=== PATIENT | male | born 1990 | race African-American/Black ===

== ENCOUNTER → 2016-10-28 | Outpatient (CLI) | payer OTHER ==
[~2016-10-28] MED LIST: GABA-113 PO; HYDR-4383 PO; IBUP-1450 PO; KETO10TA PO; METH4PAK PO; OXYC1TAB3 PO
--- NOTE | 2016-10-28 17:01 | DIAGNOSTIC IMAGING REPORT ---
MRI OF THE LUMBAR SPINE WITHOUT CONTRAST CLINICAL HISTORY: Disc herniation. Back pain radiating into left lower extremity. Lifting injury. COMPARISON STUDY: Lumbar spine radiographs July 30, 2016. TECHNIQUE: Utilizing a 1.5 Jeaneth magnet and dedicated coil, multiplanar, multiecho imaging of the lumbar spine was performed without IV contrast. FINDINGS: For purposes of numbering on this exam, the L5-S1 disc space is assigned to axial image 27 of 30. Alignment of the lumbar spine is anatomic. Vertebral body heights are maintained. There is no intracanalicular mass or fluid collection. Conus terminates at the mid L1 level. Paravertebral soft tissues are unremarkable. L1-2: The central canal and neural foramen are patent. L2-3: The central canal and neural foramen are patent. L3-4: The central canal and neural foramen are patent. L4-5: The central canal and neural foramen are patent. L5-S1: There is disc space narrowing with a disc bulge with a superimposed central/left paracentral disc protrusion. This results in moderate narrowing of the central canal and moderate to severe narrowing of the left lateral recess with mass effect upon the descending left S1 nerve root. There is mild narrowing of the left neural foramen as well as minimal narrowing of the right neural foramen. IMPRESSION: 1. Disc bulge with superimposed left paracentral disc protrusion at L5-S1 that results in moderate to severe narrowing of the left lateral recess and moderate narrowing of the central canal. Mass effect upon the descending left S1 nerve root. Mild bilateral neural foraminal narrowing at this level. 2. Otherwise, unremarkable MRI of the lumbar spine. Electronically signed by: Amari Maya M.D. 10/28/2016 5:00 PM Dictated Date/Time: 10/28/2016 4:56 PM
== END | disposition home or self-care (01) ==
LOC: C.MRI 15:54
PROVIDERS: ATTEND Orthopaedic Surgery Orthopaedic Surgery of the Spine
DX: M51.26 Other intervertebral disc displacement, lumbar region (principal); M51.27 Other intervertebral disc displacement, lumbosacral region; M48.06 Spinal stenosis, lumbar region; G54.8 Other nerve root and plexus disorders

== ENCOUNTER 2016-11-26 09:11 | Observation (INO) | payer OTHER ==
[~2016-11-26] VITALS: Ht 180.3 cm; Wt 96.0 kg
[~2016-11-26 09:11] MED LIST changes: -GABA-113 PO; -HYDR-4383 PO; -IBUP-1450 PO; -KETO10TA PO; -METH4PAK PO
[2016-11-26] MEDS ORDERED: MoRPHine SULFATE 10 MG/ML CARP/VIAL IV STA (09:30)
[2016-11-26] MEDS ORDERED: ONDANSETRON INJ 2 MG/ML 2 ML VIAL IV STA (09:30)
--- NOTE | 2016-11-26 09:33 | EMERGENCY ROOM VISIT NOTE ---
History First contact with patient: : Chief Complaint: BACK PAIN Stated Complaint: LOWER BACK AND LEFT HIP PAIN REF BY DR. MSOES History of Present Illness The patient is a 26 year old male who presents to the Emergency Room with complaints of low back pain. The patient has been having lower back pain for the last 4 months. The patient has had an MRI at the beginning of the month which showed disc protrusion L5-S1 and mass effect upon the descending left S1 nerve root. The patient has seen Dr. Moses and most recently on Tuesday. The patient was started on a Medrol Dosepak and Toradol. The patient states he is waiting for an injection to be scheduled. The patient states that he has had worsening pain in the low back and left hip. He rates his discomfort a 10/10. 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 The patient contacted Dr. Moses's office this morning and was referred to the emergency department. He denies any fevers. He denies any loss of bowel or bladder control, saddle anesthesia. He denies any abdominal pain, nausea or vomiting. Review of Systems A 10 system review of systems was completed with positives and pertinent negatives listed in the HPI. Past Medical/Surgical History Medical Problems: (1) Chr Ethmoidal Sinusitis (2) Chr Sphenoidal Sinusitis (3) Concussion W/O Coma Surgical Problems: (1) No history of previous surgery Social History Smoking Status: Never Smoker Alcohol Use: none Drug Use: none Marital Status: single Occupation Status: [employer] student Current/Historical Medications Scheduled Methylprednisolone (Medrol Dosepak), 0 PO UD Scheduled PRN Ketorolac (Toradol), 10 MG PO Q6 PRN for Pain Allergies Coded Allergies: No Known Allergies (Unverified , 07/27/16) Physical Exam Vital Signs Date Time Temp Pulse Resp B/P Pulse Ox O2 Delivery O2 Flow Rate FiO2 11/26/16 14:55 73 15 136/80 99 Room Air 11/26/16 13:48 62 16 160/116 99 Room Air 11/26/16 12:35 56 16 142/78 99 11/26/16 10:24 56 16 125/69 99 Room Air 11/26/16 09:13 36.5 73 18 143/89 100 Room Air Physical Exam VITALS: Vitals are noted on the nurse's note and reviewed by myself. Vital signs stable. GENERAL: This is a 26-year-old male, in no acute distress, nondiaphoretic, well- developed well-nourished. SKIN: The skin was without rashes, erythema, edema, or bruising. There is no tenting of the skin. Capillary reflex less than 2 seconds. HEAD: Normocephalic atraumatic. EARS: The external ears are normal in appearance EYES: Pupils equal round and reactive to light and accommodation. Conjunctivae without injection, sclerae without icterus. Extraocular movements intact. NOSE: Patent, turbinates without inflammation or discharge. MOUTH: Mucous membranes moist. Tonsils are not enlarged. Pharynx without erythema or exudate. Uvula midline. Airway patent. Tongue does not deviate. NECK: Supple without nuchal rigidity. No lymphadenopathy. No thyromegaly. Cervical spine is nontender. No JVD. HEART: Regular rate and rhythm without murmurs gallops or rubs. LUNGS: Clear to auscultation bilaterally without wheezes, rales or rhonchi. No retractions or accessory muscle use. ABDOMEN: Positive bowel sounds x 4. Soft, nontender, without masses or organomegaly. MUSCULOSKELETAL: No muscle atrophy, erythema, or edema noted. Full range of motion in all extremities. No tenderness to palpation. Strength 5/5 throughout. NEURO: Patient was alert and oriented to person place and time. Normal sensation to light and sharp touch. Deep tendon reflexes 1+ but equal in the lower extremity is bilaterally. No focal neurological deficits. Medical Decision & Procedures Laboratory Results 11/26/16 09:50 Red Blood Count 4.88, Mean Corpuscular Volume 87.5, Mean Corpuscular Hemoglobin 29.5, Mean Corpuscular Hemoglobin Concent 33.7, Mean Platelet Volume 10.5, Neutrophils (%) (Auto) 63.8, Lymphocytes (%) (Auto) 27.7, Monocytes (%) (Auto) 8.0, Eosinophils (%) (Auto) 0.2, Basophils (%) (Auto) 0.2, Neutrophils # (Auto) 5.20, Lymphocytes # (Auto) 2.26, Monocytes # (Auto) 0.65, Eosinophils # (Auto) 0.02, Basophils # (Auto) 0.02 11/26/16 09:50 Test 11/26/16 09:50 11/26/16 11:15 White Blood Count 8.16 K/uL (4.8-10.8) Red Blood Count 4.88 M/uL (4.7-6.1) Hemoglobin 14.4 g/dL (14.0-18.0) Hematocrit 42.7 % (42-52) Mean Corpuscular Volume 87.5 fL (80-100) Mean Corpuscular Hemoglobin 29.5 pg (25-34) Mean Corpuscular Hemoglobin Concent 33.7 g/dl (32-36) Platelet Count 264 K/uL (130-400) Mean Platelet Volume 10.5 fL (7.4-10.4) Neutrophils (%) (Auto) 63.8 % Lymphocytes (%) (Auto) 27.7 % Monocytes (%) (Auto) 8.0 % Eosinophils (%) (Auto) 0.2 % Basophils (%) (Auto) 0.2 % Neutrophils # (Auto) 5.20 K/uL (1.4-6.5) Lymphocytes # (Auto) 2.26 K/uL (1.2-3.4) Monocytes # (Auto) 0.65 K/uL (0.11-0.59) Eosinophils # (Auto) 0.02 K/uL (0-0.5) Basophils # (Auto) 0.02 K/uL (0-0.2) RDW Standard Deviation 40.0 fL (36.4-46.3) RDW Coefficient of Variation 12.5 % (11.5-14.5) Immature Granulocyte % (Auto) 0.1 % Immature Granulocyte # (Auto) 0.01 K/uL (0.00-0.02) Urine Renal Epithelial Cells 0-5 /lpf (0-5) Anion Gap 7.0 mmol/L (3-11) Est Creatinine Clear Calc Drug Dose 103.6 ml/min Estimated GFR () 88.5 Estimated GFR (Non- 76.4 BUN/Creatinine Ratio 14.2 (10-20) Calcium Level 9.0 mg/dl (8.5-10.1) Total Bilirubin 0.4 mg/dl (0.2-1) Aspartate Amino Transf (AST/SGOT) 13 U/L (15-37) Alanine Aminotransferase (ALT/SGPT) 20 U/L (12-78) Alkaline Phosphatase 74 U/L (45-117) Total Protein 7.8 gm/dl (6.4-8.2) Albumin 4.0 gm/dl (3.4-5.0) Globulin 3.8 gm/dl (2.5-4.0) Albumin/Globulin Ratio 1.1 (0.9-2) Urine Color YELLOW Urine Appearance CLEAR (CLEAR) Urine pH 5.5 (4.5-7.5) Urine Specific [place] 1.027 (1.000-1.030) Urine Protein NEG (NEG) Urine Glucose (UA) NEG (NEG) Urine Ketones NEG (NEG) Urine Occult Blood NEG (NEG) Urine Nitrite NEG (NEG) Urine Bilirubin NEG (NEG) Urine Urobilinogen NEG (NEG) Urine Leukocyte Esterase SMALL (NEG) Urine WBC (Auto) >30 /hpf (0-5) Urine RBC (Auto) 0-4 /hpf (0-4) Urine Hyaline Casts (Auto) 1-5 /lpf (0-5) Urine Epithelial Cells (Auto) 20-30 /lpf (0-5) Urine Bacteria (Auto) NEG (NEG) Medications Administered Medications (Trade) Dose Ordered Sig/Lyn Route Start Time Stop Time Status Last Admin Dose Admin Ondansetron HCl (Zofran Inj) 4 mg NOW STAT IV 11/26/16 09:30 11/26/16 09:31 DC 11/26/16 09:50 4 MG Morphine Sulfate (MoRPHine SULFATE INJ) 2 mg STK-MED ONCE .ROUTE 11/26/16 09:47 11/26/16 09:48 DC 11/26/16 09:51 2 MG Morphine Sulfate (MoRPHine SULFATE INJ) 4 mg STK-MED ONCE .ROUTE 11/26/16 09:47 11/26/16 09:48 DC 11/26/16 09:51 4 MG Morphine Sulfate (MoRPHine SULFATE INJ) 4 mg NOW STAT IV 11/26/16 10:36 11/26/16 10:37 DC 11/26/16 10:56 4 MG Ketorolac Tromethamine (Toradol Inj) 30 mg NOW STAT IV 11/26/16 11:33 11/26/16 11:34 DC 11/26/16 11:39 30 MG Hydromorphone HCl (Dilaudid Inj) 1 mg NOW STAT IV 11/26/16 12:07 11/26/16 12:08 DC 11/26/16 12:15 1 MG Lorazepam (Ativan Inj) 1 mg NOW STAT IV 11/26/16 12:57 11/26/16 12:58 DC 11/26/16 13:12 1 MG ED Course The patient was seen and examined. Previous visits were reviewed. The patient does not have a fever or leukocytosis. He does not have any significant electrolyte abnormality. Urine suggests contamination. The patient does not have any dysuria, urgency, frequency, penile discharge, penile rashes to suggest a true infection. Urine culture is pending. The patient was initially given 6 mg IV morphine. He complained of continued pain and was given 4 mg IV morphine. I discussed the case with Dr. Moses who recommended obtaining a lumbar spine MRI given the acute change in his symptoms. The MRI was ordered but the patient was unable to tolerate the MRI and could not lay flat. He was given 30 mg IV Toradol and 1 mg IV Dilaudid. He was sent over to MRI again and was again unable to tolerate laying flat for the MRI. At this time, I discussed the possibility of sending him home, trying Ativan and the MRI again for admitting him to the hospital for pain control. The patient stated he would like to try to get the MRI done. He was then given 1 mg IV Ativan. He was sent to MRI and again could not tolerate laying flat for the examination. At this time, I discussed the case with Dr. Moses. He will admit the patient to the hospital for intractable pain. The patient is agreeable with this plan. I also spoke with the patient's mother and gave her an update. The case was discussed with Dr. Bo who agrees with the assessment and treatment plan. Medical Decision DIFFERENTIAL DIAGNOSIS: Lumbar strain, degenerative disc disease, spondylolisthesis, herniated disc, spinal stenosis, osteoporosis, fracture, cauda equina syndrome, neoplasm, infection, inflammatory arthritis, among others. Impression Primary Impression: Herniated disc Additional Impression: Intractable back pain Departure Information Referrals RV. Dave MD (PCP) Patient Instructions My [facility] Problem Qualifiers
[2016-11-26] MEDS ORDERED: METH4PAK PO (09:35)
[2016-11-26] MEDS ORDERED: KETO10TA PO (09:35)
[2016-11-26] MEDS ORDERED: MoRPHine SULFATE 2 MG/ML CARP ONE (09:47)
[2016-11-26] MEDS ORDERED: MoRPHine SULFATE 4 MG/ML 1 ML CARP\\VIAL ONE (09:47)
[2016-11-26 10:09] LABS: BASO % 0.2 %; BASO ABS # 0.02 K/uL (0-0.2); COMPLETE YES; EOS % 0.2 %; HEMATOCRIT 42.7 % (42-52); IG% 0.1 %; LYMPH % 27.7 %; LYMPH ABS # 2.26 K/uL (1.2-3.4); MEAN CELL VOLUME 87.5 fL (80-100); MEAN CORPUSCULAR HEMOGLOBIN 29.5 pg (25-34); MEAN CORPUSCULAR HGB CONC 33.7 g/dl (32-36); MEAN PLATELET VOLUME 10.5 fL (7.4-10.4); NEUT % 63.8 %; PLATELET COUNT 264 K/uL (130-400); RED BLOOD COUNT 4.88 M/uL (4.7-6.1); WHITE BLOOD COUNT 8.16 K/uL (4.8-10.8)
[2016-11-26 10:13] LABS: URINE APPEARANCE CLEAR (CLEAR); URINE BILIRUBIN NEG (NEG); URINE COLOR YELLOW; URINE EPITHELIAL CELL AUTO >30 /lpf (0-5); URINE NITRITE NEG (NEG); URINE PH 5.5 (4.5-7.5); URINE SPECIFIC GRAVITY 1.031 (1.000-1.030); UROBILINOGEN NEG (NEG); ZZUR CULT IF INDIC CLEAN CATCH YES
[2016-11-26 10:14] LABS: MANUAL MICROSCOPIC REQUIRED? NO; REVIEW REQ? YES
[2016-11-26 10:20] LABS: BUN/CREATININE RATIO 14.2 (10-20); CREATININE 1.3 mg/dl (0.60-1.40); POTASSIUM 3.6 mmol/L (3.5-5.1)
[2016-11-26 10:23] LABS: ALB/GLOB RATIO 1.1 (0.9-2)
[2016-11-26] MEDS ORDERED: MoRPHine SULFATE 4 MG/ML 1 ML CARP\\VIAL IV STA (10:36)
[2016-11-26] MEDS ORDERED: KETOROLAC TROMETHAMINE 30 MG/ML VIAL IV STA (11:33)
[2016-11-26 11:42] LABS: URINE APPEARANCE CLEAR (CLEAR); URINE BILIRUBIN NEG (NEG); URINE COLOR YELLOW; URINE EPITHELIAL CELL AUTO 20-30 /lpf (0-5); URINE NITRITE NEG (NEG); URINE PH 5.5 (4.5-7.5); URINE SPECIFIC GRAVITY 1.027 (1.000-1.030); UROBILINOGEN NEG (NEG); ZZUR CULT IF INDIC CLEAN CATCH YES
[2016-11-26 11:45] LABS: MANUAL MICROSCOPIC REQUIRED? NO; REVIEW REQ? NO
[2016-11-26] MEDS ORDERED: HYDROmorphone INJ 1 MG/ML SYR IV STA (12:07)
[2016-11-26] MEDS ORDERED: LORAZEPAM 2 MG/ML 1 ML VIAL IV STA (12:57)
[2016-11-26] MEDS ORDERED: OXYCODONE/ACETAMINOPHEN 5-325 TAB PO PRN (15:30)
[2016-11-26] MEDS ORDERED: ONDANSETRON INJ 2 MG/ML 2 ML VIAL IV PRN (15:30)
[2016-11-26] MEDS ORDERED: PROMETHAZINE HCL INJ 12.5 MG in SODIUM CHLORIDE 0.9% 50ML 50 ML IV PRN (15:30)
[2016-11-26] MEDS ORDERED: ACETAMINOPHEN 325 MG TAB PO PRN (15:30)
[2016-11-26] MEDS ORDERED: IV FLUIDS COMPLETED PRN (16:15)
[2016-11-26 17:00] VITALS: BP 138/86; PULSE 67; TEMP 36.7; O2SAT 98; Ht 180.3 cm; Wt 96.0 kg
[2016-11-26] MEDS: HYDROCODONE/ACETAMOPHEN 5/325MG TAB PO PRN ×2 (17:01→21:10)
--- NOTE | 2016-11-26 17:57 | HISTORY & PHYSICAL EXAMINATION ---
DATE OF ADMISSION: 11/26/2016 ADMISSION HISTORY AND PHYSICAL CHIEF COMPLAINT: Back and left lower extremity difficulty. PRIMARY CARE PHYSICIAN: Dr. Machado. HISTORY OF PRESENT ILLNESS: Louis is a delightful gentleman. 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 I have known him for about a month, treating him conservatively with a disk protrusion of the spine. He has waxed and waned over the course of weeks, sometimes better, sometimes worse try to do some exercises and strength training over the last few days. No real trauma, but really had a precipitation of significant pain, came back to see his mother this morning around 7:00 a.m. They went right to the ER after they called our office for evaluation and treatment. His pain was so severe and he was not able to lie in the MRI machine. Fortunately, no bowel and bladder loss, no abdominal discomfort. No nausea, vomiting. No fevers, sweats or chills. PAST MEDICAL AND SURGICAL HISTORY: Sinusitis and prior concussion, no prior surgeries. SOCIAL HISTORY: Nonsmoker, nonalcohol user. He is single, student at [employer]. ALLERGIES: None known. REVIEW OF SYSTEMS: a 12-system review taken here today only positive for musculoskeletal chief complaint. OBJECTIVE: VITAL SIGNS: 142/78 blood pressure, respiration rate 16, pulse 56. HEENT: Pupils react to light and accommodation. Ear, nose and throat clear. HEART: Normal S1, S2, no S3. LUNGS: Clear to auscultation. No rales, rhonchi or wheezing. ABDOMEN: Soft, nontender. EXTREMITIES: Moves all 4 extremities. No weakness, no reflex changes. Profound straight leg raising on the left with numbness and tingling with straight leg raising. ASSESSMENT:. Intractable pain and disk herniation from the past. The patient really cannot be mobilized, cannot get in a scanner. DISPOSITION: Includes admission to hospital, place him on some IV steroids, IV Toradol, narcotics mild, hopefully get this turned around, he may need surgery, hopefully we can avoid surgical intervention. NAHOMI
[2016-11-26] MEDS: KETOROLAC TROMETHAMINE 30 MG/ML VIAL IV. SCH (18:40)
[2016-11-26] MEDS: DEXAMETHASONE INJ 6 MG in SYRINGE 0 ML IV SCH (19:03)
[2016-11-26] MEDS: DOCUSATE SODIUM 100 MG CAP PO SCH (21:09)
[2016-11-26] MEDS ORDERED: DEXAMETHASONE INJ 8 MG in SYRINGE 0 ML IV SCH (22:00)
[2016-11-26] MEDS: LORAZEPAM 1 MG TAB PO PRN (22:32)
[2016-11-26 23:25] VITALS: BP 130/84; PULSE 61; TEMP 36.8; O2SAT 98
[2016-11-27] MEDS: DIAZEPAM 5MG TAB PO PRN ×2 (00:01→10:14)
[2016-11-27] MEDS: KETOROLAC TROMETHAMINE 30 MG/ML VIAL IV. SCH ×5 (00:01→23:56)
[2016-11-27] MEDS: DEXAMETHASONE INJ 6 MG in SYRINGE 0 ML IV SCH ×5 (00:08→23:55)
[2016-11-27] MEDS: HYDROCODONE/ACETAMOPHEN 5/325MG TAB PO PRN ×3 (05:23→18:21)
[2016-11-27 07:10] VITALS: BP 143/96; PULSE 61; TEMP 36.9; O2SAT 97
[2016-11-27] MEDS: LORAZEPAM 1 MG TAB PO PRN ×2 (07:11→18:21)
[2016-11-27] MEDS: DOCUSATE SODIUM 100 MG CAP PO SCH ×2 (08:36→20:49)
--- NOTE | 2016-11-27 10:07 | PROGRESS NOTE ---
DATE: 11/26/2016 ADDENDUM TO VINNIE NOTE ASSESSMENT: Disc herniation L5-S1, left. PLAN: Includes the medication that has already been ordered for the patient, which includes Dilaudid for pain, Decadron, Toradol. I have added Neurontin tablets 300 mg t.i.d. this morning. We have also put a consultation in for pain management. I believe an injection L5-S1 on the left will help him with the acuity of pain and then hopefully successfully get an MRI scan of the spine.
[2016-11-27] MEDS ORDERED: HYDROmorphone INJ 1 MG/ML SYR ONE (10:19)
--- NOTE | 2016-11-27 10:50 | PROGRESS NOTE ---
DATE: 11/27/2016 SUBJECTIVE: Pain is about the same as it was last evening may be better. He has been up to the bathroom. He can ambulate minimally, he is stooped over. He is in significant pain when he moves his left leg. He is comfortable in a flexed up position. OBJECTIVE: Vital signs stable, alert, oriented. He is a little depressed because of his current situation, but that is only temporary. Rest of his vital signs stable. IMAGING: He has a large disk herniation from a prior MRI scan of his lumbar spine. Unfortunately, it is too painful. We cannot get new imaging on him. He cannot lie supine. PLAN: Includes continued medical treatment. Hopefully, get the inflammatory response under control and it would be appropriate to get a new MRI scan of his lumbar spine. I would not be in favor of surgery without new information. I know he has a large herniation L5-S1, be appropriate to know the extent of the worsening.
[2016-11-27] MEDS: GABAPENTIN 300 MG CAP PO SCH ×2 (15:24→20:49)
[2016-11-27 15:30] VITALS: O2SAT 97
[2016-11-27 15:49] VITALS: BP 131/83; PULSE 77; TEMP 36.5; O2SAT 99
[2016-11-27] MEDS: HYDROmorphone INJ 1 MG/ML SYR IV PRN (20:48)
[2016-11-27 23:16] VITALS: BP 138/92; PULSE 66; TEMP 36.5; O2SAT 98
[2016-11-28] MEDS: HYDROCODONE/ACETAMOPHEN 5/325MG TAB PO PRN ×5 (00:02→22:38)
[2016-11-28] MEDS: HYDROmorphone INJ 1 MG/ML SYR IV PRN ×3 (02:37→15:54)
[2016-11-28] MEDS: DEXAMETHASONE INJ 6 MG in SYRINGE 0 ML IV SCH ×4 (06:01→23:06)
[2016-11-28] MEDS: KETOROLAC TROMETHAMINE 30 MG/ML VIAL IV. SCH ×4 (06:01→23:07)
[2016-11-28 07:17] VITALS: BP 137/82; PULSE 56; TEMP 36.6; O2SAT 96
[2016-11-28] MEDS: GABAPENTIN 300 MG CAP PO SCH ×3 (08:59→21:11)
[2016-11-28] MEDS: DOCUSATE SODIUM 100 MG CAP PO SCH ×2 (08:59→21:11)
--- NOTE | 2016-11-28 13:13 | PROGRESS NOTE ---
DATE: 11/28/2016 SUBJECTIVE: Mildly better today than he was yesterday not significantly so. No fevers, sweats, chills, or bowel and bladder issues. OBJECTIVE: He moves all 4 extremities. No gross neurological deficit. No bowel and bladder issues. IMAGING DATA: We tried desperately to get an MRI scan yesterday which was the 27 of November. We tried 3 times to get Louis down and he could not tolerate becoming supine. Imaging from an old MRI scan demonstrates a disk herniation L5-S1, on his affected side, which is consistent with his pain and pathology. DISPOSITION: At this point in time, he does not seem to be making it too successfully and more than likely will need the surgical intervention. Prior surgery, I would really like to get a new MRI scan of the lumbar spine, so we are not surprised of surgical intervention. I doubt if any type of fusion will be required, but ____ get a handle on how large the disk is plus the migration or movement thereof. In summary, the game plan is to try to get Louis down for an MRI scan tomorrow. He may need a true sedation with anesthesia that will have to be arranged. If we get that performed tomorrow then he may require surgical intervention later in the week. There is an outside chance that he may get better on his own. Will follow him very closely as we have.
[2016-11-28 15:20] VITALS: BP 145/84; PULSE 60; TEMP 36.8; O2SAT 98
[2016-11-28 23:03] VITALS: BP 138/86; PULSE 63; TEMP 36.7; O2SAT 99
[2016-11-29] VITALS (9 sets, daily range): BP systolic 115–134; BP diastolic 66–82; PULSE 45–82; TEMP 36.3–36.8; O2SAT 92–98
[2016-11-29] MEDS: DIAZEPAM 5MG TAB PO PRN (00:16)
[2016-11-29] MEDS: HYDROmorphone INJ 1 MG/ML SYR IV PRN ×2 (02:10→12:31)
[2016-11-29] MEDS: HYDROCODONE/ACETAMOPHEN 5/325MG TAB PO PRN (05:54)
[2016-11-29] MEDS: KETOROLAC TROMETHAMINE 30 MG/ML VIAL IV. SCH ×4 (05:54→23:41)
[2016-11-29] MEDS: DEXAMETHASONE INJ 6 MG in SYRINGE 0 ML IV SCH ×4 (05:55→23:42)
[2016-11-29] MEDS: GABAPENTIN 300 MG CAP PO SCH ×3 (09:45→20:18)
[2016-11-29] MEDS: DOCUSATE SODIUM 100 MG CAP PO SCH ×2 (09:45→20:18)
[2016-11-29] MEDS: LORAZEPAM 1 MG TAB PO PRN (09:48)
--- NOTE | 2016-11-29 13:28 | CONSULTATION REPORT ---
DATE OF CONSULTATION: 11/29/2016 Plan of care discussed with Dr. Melita Lin. CHIEF COMPLAINT: Left-sided low back and gluteal pain as well as left foot paresthesias. HISTORY OF PRESENT ILLNESS: Mr. Johns is a 26-year-old male who was admitted due to intractable pain in the left lumbosacral region extending into the gluteal area with paresthesias affecting the left foot. The patient reported onset of his pain approximately in July while performing a weightlifting, squatting maneuver. He was followed by Dr. Elder in the outpatient setting with MRI scanning, which showed a lumbar disc protrusion at L5-S1 with mass effect upon the descending left S1 nerve root at that time. Conservative management was recommended and he was reporting some symptomatic improvement. The patient reported acute onset of his current symptomatic complaints over the past few days without known injury. He denied offending activities immediately leading to the onset of his current pain complaint. MRI has been attempted during this inpatient stay for reevaluation, but unsuccessful due to his inability to tolerate supine activities. MRI scan with sedation is tentatively planned for later today. The patient indicates that his pain is minimal at this time predominantly in the left gluteal area. He rates his current pain at a 4/10 ranging between 3-7/10. The patient denies a true radicular pain into the lower extremity but does report some paresthesias affecting the foot in a nondermatomal pattern. He denies any weaknesses, footdrop or falling. The patient denies right lower extremity radicular pain at this time. He denies any bowel or bladder incontinence. He denies any saddle anesthesias. The patient wishes to avoid surgical intervention and reports that a prior epidural was planned but not completed. 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 PAST MEDICAL HISTORY: 1. Chronic ethmoidal sinusitis. 2. Chronic sphenoid sinusitis. 3. History of concussion. PAST SURGICAL HISTORY: Unremarkable. SOCIAL HISTORY: The patient is currently a student at [employer] participating in football. He denies alcohol, tobacco or illicit drug use. The patient is single without children. ALLERGIES: No known drug allergies. CURRENT MEDICATIONS: Reviewed extensively in EMR -- refer for current list. REVIEW OF SYSTEMS: The patient denies complaints related to cardiac, pulmonary, GI, , endocrine, neurologic, hepatic, renal, ENT, dermatologic, musculoskeletal as described above in the HPI. PHYSICAL EXAMINATION: VITAL SIGNS: Temperature 36.8 degrees Celsius, pulse 50, respirations 16, BP 116/66, pulse oximetry 98 on room air. GENERAL: Mr. Johns is lying quietly upon entering the room in no obvious acute distress. Speech and thought process are appropriate. Mood and affect are appropriate. Cognition is intact. ABDOMEN: Soft and nondistended. BACK AND SPINE: Normal to slight loss of lumbar lordosis. The patient is nontender over the midline. No focal facet or SI joint tenderness. He is moderately tender over the left quadratus lumborum along the iliac crest as well as the gluteal musculature. There are some scattered spasm appreciated on the left. He is nontender without spasm most noted on the right. Range of motion is without limitation. LOWER EXTREMITIES: SLR is positive on the left reproducing low back and gluteal pain on the left. Negative SLR on the right. Strength testing was 5/5 and equal with dorsiflexion, plantar flexion, knee flexion, knee flexion/extension, and hip flexion bilaterally. Sensation was intact without deficits distally to sharp and dull. No evidence of edema, erythema or skin breakdown. Distal pulses are 2+. Babinski downgoing bilaterally. NEUROLOGIC: Cranial nerves grossly intact. Ambulatory function was not witnessed. IMAGING: MRI of the lumbar spine dated 10/28/2016 was reviewed which revealed a disk bulge at L5-S1 with a superimposed left paracentral protrusion resulting in moderate to severe narrowing of the left lateral recess and moderate narrowing of the central canal. There is mass effect upon the descending left S1 nerve root. There is mild bilateral neural foraminal narrowing at this level. MRI was otherwise unremarkable. ASSESSMENT: 1. Lumbar radiculopathy with MRI evidence of a left paracentral disc protrusion at L5-S1 causing mass effect upon the descending left S1 nerve root dated 10/28/2016. TREATMENT AND RECOMMENDATIONS: 1. Would recommend maintaining his current medications as prescribed without change. 2. We did briefly discuss pursuing epidural steroid injection, but would hold pending results of his upcoming MRI scheduled for later today. Will tentatively consider pursuing ANTONETTE on 11/30/2016 pending review of MRI results. 3. Will continue to follow during hospitalization. Thank you for the consultation of Mr. Johns. NAHOMI
[2016-11-29] MEDS ORDERED: DexMEDEtomidine HCL IV 100 MCG/ML VIAL IV ONE (14:20)
[2016-11-29] MEDS ORDERED: MIDAZOLAM HCL 1 MG/ML 2ML VIAL ONE (14:23)
[2016-11-29] MEDS ORDERED: FENTANYL CITRATE INJ 50 MCG/1 ML 2 ML VIAL ONE ×2 (14:23→16:28)
[2016-11-29] MEDS ORDERED: OXYMETAZOLINE HCL 0.05% NA SPR 15 ML BTL ONE (14:51)
--- NOTE | 2016-11-29 15:02 | PROGRESS NOTE ---
DATE: 11/29/2016 SUBJECTIVE: Moderate complaints of pain. Still at bed rest. He is able to use the bathroom. No fevers, sweats, chills. No bowel or bladder issues. Hemoglobin 14.4. White cell count 8.6. Alert, oriented. ASSESSMENT: Disk herniation, lumbar spine. DISPOSITION: Includes an MRI scan later on this evening under anesthesia. Tentatively will get the patient home at bed rest tomorrow as far as discharge is concerned, I am doubtful have any urgent surgery certainly is not mandatory as he has no gross neurological deficit. I would like to get him home and then appropriately schedule him on the operative schedule, if he needs surgery in the not too distant future.
[2016-11-29] MEDS ORDERED: EpHEDrine SULFATE INJ 50 MG/ML AMP IV PRN (16:45)
[2016-11-29] MEDS ORDERED: ATROPINE SULFATE 0.1 MG/ML 5ML SYR IV PRN (16:45)
--- NOTE | 2016-11-29 17:25 | DIAGNOSTIC IMAGING REPORT ---
MRI OF THE LUMBAR SPINE WITHOUT CONTRAST CLINICAL HISTORY: Low back pain radiating into left upper extremity. COMPARISON STUDY: MRI of the lumbar spine October 28, 2016. TECHNIQUE: This study was performed with anesthesia for sedation. Utilizing a 1.5 Jeaneth magnet and dedicated coil, multiplanar, multiecho imaging of the lumbar spine was performed without IV contrast. FINDINGS: For purposes of numbering on this exam, the L5-S1 disc space is assigned to axial image 27 of 30. This exam is mildly compromised by motion artifact but is diagnostic. Vertebral body heights are maintained. There is no intracanalicular mass or fluid collection. The conus terminates at the lower L1 level. Paravertebral soft tissues are unremarkable. L1-2: The central canal and neural foramen are patent. L2-3: The central canal and neural foramen are patent. L3-4: The central canal and neural foramen are patent. L4-5: The central canal and neural foramen are patent. L5-S1: There is disc space narrowing with disc bulge and a superimposed central/left paracentral disc protrusion which is similar to MRI of October 28, 2016. This results in moderate to severe narrowing of the left lateral recess and moderate narrowing of the central canal. There is mild bilateral neural foraminal stenosis at this level. IMPRESSION: 1. No significant change in the left paracentral disc protrusion at L5-S1 since MRI of October 28, 2016. This disc herniation results in moderate to severe narrowing of the left lateral recess and moderate narrowing of the central canal. 2. Otherwise, unremarkable MRI of the lumbar spine. Electronically signed by: Amari Maya M.D. 11/29/2016 5:24 PM Dictated Date/Time: 11/29/2016 5:19 PM
--- NOTE | 2016-11-29 18:58 | Anesthesiology Progress Note ---
Anesthesia Post Op Note Date & Time Nov 29, 2016 at 18:58 Vital Signs Pain Intensity: 0.0 Vital Signs Past 12 Hours Date Time Temp Pulse Resp B/P Pulse Ox O2 Delivery O2 Flow Rate FiO2 11/29/16 18:15 36.5 45 16 134/81 96 Room Air 11/29/16 17:50 Room Air 11/29/16 17:49 36.6 48 16 92 Room Air 11/29/16 17:35 36.6 48 16 133/98 100 Room Air 11/29/16 17:25 50 16 140/94 100 Room Air 11/29/16 17:15 36.4 52 16 158/100 100 Mask 10 11/29/16 16:33 Room Air 11/29/16 15:40 36.5 60 18 133/79 97 Room Air 11/29/16 11:52 36.8 59 17 128/82 98 Room Air 11/29/16 09:58 98 Room Air 11/29/16 07:59 Room Air 11/29/16 07:57 36.8 50 16 116/66 98 Room Air Notes Mental Status: alert / awake / arousable, participated in evaluation Pt Amnestic to Procedure: Yes Nausea / Vomiting: adequately controlled Pain: adequately controlled Airway Patency, RR, SpO2: stable & adequate BP & HR: stable & adequate Hydration State: stable & adequate Anesthetic Complications: no major complications apparent
[2016-11-30] MEDS: HYDROCODONE/ACETAMOPHEN 5/325MG TAB PO PRN ×2 (05:09→09:31)
[2016-11-30] MEDS: KETOROLAC TROMETHAMINE 30 MG/ML VIAL IV. SCH ×2 (05:48→11:32)
[2016-11-30] MEDS: DEXAMETHASONE INJ 6 MG in SYRINGE 0 ML IV SCH ×2 (05:49→11:38)
[2016-11-30 07:06] VITALS: BP 137/83; PULSE 49; TEMP 36.8; O2SAT 97
[2016-11-30] MEDS: DOCUSATE SODIUM 100 MG CAP PO SCH (08:34)
[2016-11-30] MEDS: GABAPENTIN 300 MG CAP PO SCH (08:34)
[2016-11-30] MEDS ORDERED: METH4PAK PO (09:51)
[2016-11-30] MEDS ORDERED: GABA-113 PO (09:51)
[2016-11-30] MEDS ORDERED: HYDR-4383 PO (09:51)
--- NOTE | 2016-11-30 09:53 | Discharge Instructions ---
Discharge Instructions Date of Service Nov 30, 2016. Admission Reason for Admission: Left Lumbar Radiculopathy Discharge Discharge Diagnosis / Problem: SAME ABOVE Discharge Goals Goal(s): Decrease discomfort, Improve function Activity Recommendations Activity Limitations: as noted below Lifting Limitations: until after follow-up appointment Exercise/Sports Limitations: until after follow-up appointment May Resume Sexual Activity: after follow-up appointment Shower/Bathe: no limitations . Instructions / Follow-Up Instructions / Follow-Up MEDICATIONS: Please take your prescriptions as instructed at your pre-op appointment. SPECIAL CARE: The following information is intended to answer some of the common questions and concerns regarding your surgery. Each patient is an individual and receives individual counselling throughout the course of treatment, from diagnosis to surgery all the way through recovery. What follows is not an exhaustive list, but should be a useful guide to some of the common questions and concerns patients have regarding their surgeries. These are not provided to keep you from calling us; rather, they give you something accurate and concrete to reference as you recover from your procedure. If you need us, we are available to you. As always, if you are not sure about something, call us at [phone]. MEDICAL EMERGENCIES: For these conditions, call 911 or go to your local hospital-based Emergency Department - not [facility] or equivalent. * Paralysis * Severe chest pain or difficulty breathing * Swelling or redness of either leg Spine procedures can be rather complex and though complications are rare, they do occur. In such cases, effective advice regarding emergency situations cannot always be addressed over the telephone. You may be referred to the emergency department for more effective management of your problem. Activity Limitations: It is important to give your body time to heal, so please limit your activities : * In general, don't do anything that moves your spine too much. You should avoid contact sports, twisting or heavy lifting while you recover. * 5-10 pounds is all you should attempt to lift. * You should not plan on driving for approximately 3 weeks and you should avoid traveling more than 30-45 minutes at a time. Longer trips should be broken down with walking breaks spaced appropriately. * Physical therapy is not usually required. * Walking and good posture practices will help you recover and regain your function. * Avoid straining or sudden changes in position. * In general, the goal is to take it easy and recover. Don't cause any new problems. Just relax. Showers: * Do not take a bath, use a Jacuzzi or hot tub or otherwise submerge your incision. * It is usually safe to take a shower 4-5 days after your surgery. * Your incision does not require any special creams or ointments. * Simply clean it with soap and water, dry and re-dress with a clean bandage afterwards. Incision: * Keep incision clean, dry and protected until your first follow-up appointment. * Some amount of drainage and redness is normal. Any drainage should be fairly clear and not have a foul odor. * If you feel anything is wrong or you have excessive drainage, please call us. * Your stitches and cynthia will be removed 10-14 days after your surgery. At the time of your first post-op visit. * Neck surgeries are typically closed with a suture underneath the skin. The steri-strips over the incision should be maintained until we see you in the office. Bracing: * You may be provided with a back or neck brace to encourage good posture and prevent injury. It will remind you not to do too much as you heal and will alert others to the fact that you have had a surgery. * Back braces may be removed for showers and when you are resting at home. They must be worn when you are walking around for any period of time or for travel. * For neck surgery, you will likely be provided with two cervical collars. The soft collar ([place] or foam rubber) is worn most commonly throughout the day and while sleeping. The plastic collar (provided at the hospital) is for showering/bathing. * Except while eating, collars should remain in place. More specifically, bracing is provided for a purpose and should be worn. * Please obtain your brace or collars prior to your operation and bring them to the hospital with you on the day of surgery. * You should also bring your collars to your post-op appointment with Dr. Elder. You should always take good care of your body and practice healthy habits, especially following surgery. You should: * Follow your doctor's treatment plan * Sit and stand properly with good posture (ears over shoulders, shoulders over hips) Don't slouch * Learn to lift correctly * Exercise regularly (low-impact aerobic exercise is especially good, but check with your doctor first) * Generally, be up and walking for 5-10 minutes at a time at least 3-4 times per day from the day you get home * Increasing walking to tolerance until you can walk for 20-30 minutes at a time * Attain and maintain a healthy body weight * Eat healthy foods ( a well-balanced, low-fat diet rich in fruits and vegetables) and get enough calcium * Avoid excessive use of alcohol When to call our office - If you notice any of the following: * Increased pain not relieve by pain medicine * Fevers greater then 100 degrees F, chills or flu symptoms * Increased redness around incision * Drainage from the incision that is not clear * Any foul smelling drainage * Swelling or fluid collection beneath the skin Miscellaneous: * In the hospital, you may be given a walker or cane for support while walking. These are temporary needs and are intended to prevent injuries due to falls. You may discontinue them when you feel strong and steady enough on your feet. * Sleep in a comfortable position. We find that many patients find a lounge chair or recliner with several pillows to be beneficial in the early post-operative period. * The support stockings should be used for 7-10 days and may be discontinued when you are back to walking more and conducting usual household activities. No problem is insignificant. We are here to help you and get you well. Contact us at [phone]. Definitions: Foraminotomy: If part of the disc or a bone spur (osteophyte) is pressing on a nerve as it leaves the vertebra (through an exit called the foramen), a foraminotomy may be done. Otomy means "to make an opening." A foraminotomy is making the opening of the foramen larger, so the nerve can exit without being compressed. Laminotomy: Similar to the foraminotomy, a laminotomy makes a larger opening, this time in your bony plate protecting your spinal canal and spinal cord (the lamina). The lamina may be pressing on your nerve, so the surgeon may make more room for the nerves using a laminotomy. Laminectomy: Sometimes, a laminotomy is not sufficient. The surgeon may need to remove all or part of the lamina. This procedure is called a laminectomy. This can often be done at many levels without any harmful effects. Current Hospital Diet Patient's current hospital diet: Regular Diet Discharge Diet Recommended Diet: Regular Diet Pending Studies Studies pending at discharge: no Medical Emergencies . Who to Call and When: Medical Emergencies: If at any time you feel your situation is an emergency, please call 911 immediately. . Non-Emergent Contact Non-Emergency issues call your: Primary Care Provider . "Provider Documentation" section prepared by Inderjit Kern. VTE Core Measure Inpt VTE Proph given/why not?: Treatment not indicated
[2016-11-30 10:19] VITALS: BP 137/83; PULSE 49; TEMP 36.8; O2SAT 97
--- NOTE | 2016-11-30 10:39 | PROGRESS NOTE ---
DATE: 11/30/2016 DATE: 11/30/2016. Plan of care discussed with Dr. Melita Lin. SUBJECTIVE: Mr. Johns is a 26-year-old male who was admitted due to intractable pain in the left lumbosacral region extending into the gluteal area with paresthesias affecting left foot. The patient was able to undergo an MRI of the lumbar spine yesterday with sedation as ordered by Dr. Elder for further evaluation of his lumbar spinal location. MRI returned without significant change compared to an MRI from October which revealed a lumbar disc protrusion L5-S1 with mass effect upon the descending left S1 nerve root. The patient reports discomfort in the left lumbosacral region extending into the gluteal region rarely onto the posterior proximal thigh. He does report paresthesias affecting the left foot but denies true radicular pain to the level of the foot. The patient reports his pain is similar to yesterday and he report sleep interference last evening due to the pain and discomfort. He describes the pain as episodic, aching and occasionally sharp and shooting. He rates his pain at a 3-7/10. The patient is out of bed to the bathroom. He indicates he is unable to stand straight due to exacerbation of symptoms and typically ambulates with flexion. He denies falls or injuries. He has no further constitutional complaints. OBJECTIVE: VITAL SIGNS: Temperature 36.8 degrees Celsius, pulse 49, respirations 16, BP 137/83, pulse oximetry 97 on room air. GENERAL: Mr. Johns is lying quietly accompanied by a female manager customer upon entering the room in no acute distress. Speech and thought process are appropriate. Mood and affect is appropriate. Cognition was intact. EXTREMITIES: Sensation was intact without deficits distally to sharp and dull. Strength testing was 5/5 and equal throughout. No evidence of edema, erythema or skin breakdown. SLR remained positive on the left reproducing low back and gluteal pain. SLR negative on the right. NEUROLOGIC: Cranial nerves grossly intact. Ambulatory function was not witnessed. IMAGING: Lumbar spine MRI dated 11/29/2016 revealed disc space narrowing at L5-S1 with bulge and superimposed central/left paracentral protrusion similar to MRI of 10/28/2016. This results in moderate to severe narrowing of the left lateral recess and moderate narrowing of the central canal. There is mild bilateral neural foraminal stenosis at this level. ASSESSMENT: 1. Lumbar disc herniation L5-S1. 2. Lumbago with radicular pain. TREATMENT AND RECOMMENDATIONS: We discussed treatment options. We again discussed pursuing an ANTONETTE. Would recommend the patient be discharged. We will pursue ANTONETTE in the outpatient setting tentatively planned for tomorrow 12/01/2016. This will be communicated to Dr. Elder. He will maintain his current medications without change. NAHOMI
--- NOTE | 2016-12-08 09:54 | DISCHARGE SUMMARY ---
DATE OF DISCHARGE: 11/30/2016 He is improved, stable. Medications are under control. He was given a walker for support. ASSESSMENT: Disc herniation lumbar spine. Discharged home in improved and stable condition. Medication followup and pain management followup. NAHOMI
[2017-01-25] MEDS ORDERED: IBUP-1450 PO (10:59)
== END 2016-11-30 12:35 | disposition home or self-care (01) ==
LOC: ENRESERVDT → ENRESERVTM → C.EDB 09:13 → C.3E 15:33
PROVIDERS: ADMIT Orthopaedic Surgery Orthopaedic Surgery of the Spine; ATTEND Orthopaedic Surgery Orthopaedic Surgery of the Spine
DX: M51.17 Intervertebral disc disorders with radiculopathy, lumbosacral region (principal)

== ENCOUNTER → 2017-06-25 | Outpatient (CLI) | payer OTHER ==
[~2017-06-25] MED LIST changes: +IBUP-1450 PO; -OXYC1TAB3 PO
== END | disposition home or self-care (01) ==
LOC: C.LAB 10:22
PROVIDERS: ATTEND Internal Medicine
DX: Z20.2 Contact with and (suspected) exposure to infections with a predominantly sexual mode of transmission (principal)

== ENCOUNTER → 2017-08-15 | Outpatient (CLI) | payer OTHER ==
[2017-08-17 00:04] LABS: CHLAMYDIA TRACH RNA*** NOT DETECTED (NOT DETECTED); GC (NEIS GONORRHOEAE)RNA** NOT DETECTED (NOT DETECTED)
== END | disposition home or self-care (01) ==
LOC: C.LAB1850 11:23
PROVIDERS: ATTEND Internal Medicine
DX: A74.9 Chlamydial infection, unspecified (principal)

== ENCOUNTER 2017-09-22 14:10 | Emergency (ER) | payer OTHER ==
[~2017-09-22] VITALS: Ht 182.9 cm; Wt 102.0 kg
[2017-09-22 14:12] VITALS: TEMP 36.4; Ht 182.9 cm; Wt 102.0 kg
[2017-09-22] MEDS ORDERED: CEFTRIAXONE SOD INJ 250 MG/ML VIAL IM STA (14:42)
[2017-09-22] MEDS ORDERED: AZITHROMYCIN 250 MG TAB PO STA (14:42)
[2017-09-22] MEDS ORDERED: CEFTRIAXONE SOD INJ 250 MG in SYRINGE 0 ML IM SCH (14:42)
--- NOTE | 2017-09-22 14:53 | EMERGENCY ROOM VISIT NOTE ---
History First contact with patient: 14:35 Chief Complaint: STD MALE Stated Complaint: STD TESTING History of Present Illness The patient is a 27 year old male who presents to the Emergency Room via private vehicle with complaints of "STD testing". The patient states that he has a history of chlamydia back in May, and notes that he was treated for such. He states that he has no symptoms currently, but was notified today via phone call from a previous partner that she tested positive for chlamydia. He states that he has not been treated since having sexual intercourse with her back in July. He today would like testing, and potential treatment. He denies symptoms. Review of Systems A complete 6-point Review of Systems was discussed with the patient, with pertinent positives and negatives listed in the History of Present Illness. All remaining Review of Systems questions can be considered negative unless otherwise specified. 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 Stable. Afebrile. GENERAL -27-year-old male appearing his stated age who is in no acute distress. Communicates well with provider and answers questions appropriately. SKIN - Without rashes. No petechial or meningeal rash. Genitalia examination to inspection is unremarkable. : Genitalia is unremarkable to inspection, there is no tenderness to palpation overlying the testes. There are no masses. There is no penile drainage. No ulcerations. Medical Decision & Procedures Medications Administered Medications (Trade) Dose Ordered Sig/Lyn Route Start Time Stop Time Status Last Admin Dose Admin Azithromycin (Zithromax Tab) 1,000 mg NOW STAT PO 09/22/17 14:42 09/22/17 14:43 DC 09/22/17 15:06 1,000 MG Ceftriaxone Sodium (Rocephin Im) 997.5 mg STK-MED ONCE IM 09/22/17 14:56 09/22/17 14:57 DC 09/22/17 14:56 250 MG Medical Decision Patient was seen and evaluated as above. He presents to us today with request for potential STD testing and treatment. I believe it is reasonable at this time to appear to treat him given that he had sexual relations with an individual who called him today noting that she was positive for chlamydia. It is important to note that he has no symptoms currently. I did obtain a gonorrhea and chlamydia test via urine. This is pending. He was given 250 mg of Rocephin intramuscularly, and 1 g of azithromycin by mouth. He was educated upon management, educated upon calling back here for results within one week if he does not hear from us, and was discharged home in good condition. I informed him that if his tests come back positive he should call his partners to inform them. In evaluation treatment this patient the following differential diagnoses were entertained: Sexual transmitted infections, UTI, among others. Impression Primary Impression: Possible exposure to STD Departure Information Dispostion Home / Self-Care Condition GOOD Referrals No Doctor, Assigned (PCP) Patient Instructions [facility] Additional Instructions You were seen in the emergency department for exposure to a potential sexually transmitted infection. At this time you have been treated for any potential gonorrhea or chlamydia. This consisted of an injection of Rocephin, and oral azithromycin. These are both antibiotics I do recommend watching for any symptoms such as penile drainage, testicular pain, or any new/concerning symptoms and if these are to develop please return. We did test to for gonorrhea and chlamydia and if you do not hear from us these are likely negative however we do recommend calling back here in 1 week to review results. You may call here at [phone] Please return with any new/concerning symptoms. Thank you for your time.
[2017-09-22] MEDS ORDERED: CEFTRIAXONE SOD 350MG/ML 1 GM VIAL IM ONE (14:56)
[2017-09-22 15:21] VITALS: BP 143/91; PULSE 71; O2SAT 99
== END 2017-09-22 15:15 | disposition home or self-care (01) ==
LOC: C.EDB 14:11 → C.EDD 15:15
DX: Z20.2 Contact with and (suspected) exposure to infections with a predominantly sexual mode of transmission (principal); J32.2 Chronic ethmoidal sinusitis; J32.3 Chronic sphenoidal sinusitis